=== PATIENT | male | born 1950 | race Caucasian/White ===

== ENCOUNTER → 2024-10-17 12:22 | Outpatient (REF) | payer OTHER, SELFPAY | LOC: HWRAD 12:22 | PROVIDERS: ATTENDING PHYSICIAN Radiology Diagnostic Radiology; REFERRING PHYSICIAN Surgery | DX: Z95.0 Presence of cardiac pacemaker (principal); Z95.810 Presence of automatic (implantable) cardiac defibrillator | CPT/HCPCS: 71046 ==

== ENCOUNTER → 2024-10-24 13:41 | Outpatient (REF) | payer OTHER, SELFPAY | LOC: MRI 3T 13:41 | PROVIDERS: ATTENDING PHYSICIAN Nurse Practitioner | DX: R97.20 Elevated prostate specific antigen [PSA] (principal) | CPT/HCPCS: 72197; 76014; 76015; A9575 ==